=== PATIENT | female | born 1975 | race Caucasian/White ===

== ENCOUNTER 2019-01-11 09:54 | Day surgery (SDC) | payer OTHER, SELFPAY ==
[2019-01-11] VITALS (8 sets, daily range): BP systolic 77–116; BP diastolic 48–70; PULSE 70–98; RESP 10–16; TEMP 36.2–36.7; O2SAT 95–100; BMI 17.9
[2019-01-11] MEDS: SODIUM CHLORIDE 0.9% 1,000 ML 50 ML IV ×2 (10:22→12:19)
[2019-01-11] MEDS: ONDANSETRON 4 MG/2 ML INJ IV (11:18)
--- NOTE | 2019-01-11 11:21 | PM.HP.1 ---
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 Also history of abdominal pain need to check upper tract for evidence of precancerous lesions but also to rule out any findings contributing to her symptoms Patient History Medical History (Updated 01/11/19 @ 11:24 by Jourdan Rm MD) H/O: hysterectomy (Acute) Bellamy syndrome (Acute) Ovarian cancer (Acute) Pathologic fracture (Acute) Social History household members: spouse Family & Social History Social History: household members spouse Meds Home Medications Medication Instructions Recorded Confirmed Type No Known Home Medications 01/11/19 01/11/19 History Allergies Allergy/AdvReac Type Severity Reaction Status Date / Time No Known Drug Allergies Allergy Verified 01/11/19 10:39 Exam Vital Signs (past 8 hours): - 01/11/19 10:25 Temperature 98.0 F Pulse Rate 82 Respiratory Rate 12 Blood Pressure 113/70 Pulse Oximetry 100 Oxygen Delivery Method Room Air Narrative Exam Narrative: Oropharynx free of lesions Chest clear to auscultation percussion Cardiac exam reveals no S3 or murmur Assessment & Plan Assessment & Plan narrative: 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 Patient is also positive for Bellamy syndrome. Father is is well with bladder cancer and mother had gastric cancer last screening 2 years ago. Also some right upper quadrant discomfort Patient certainly needs colonoscopy and upper endoscopy. Risks, benefits, alternatives has been explained. Further recommendations will follow the results of those studies
--- NOTE | 2019-01-11 11:26 | P.HP_ITS ---
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 Also history of abdominal pain need to check upper tract for evidence of precancerous lesions but also to rule out any findings contributing to her symptoms Patient History Medical History (Updated 01/11/19 @ 11:24 by Jourdan Rm MD) H/O: hysterectomy (Acute) Bellamy syndrome (Acute) Ovarian cancer (Acute) Pathologic fracture (Acute) Social History household members: spouse Family & Social History Social History: household members spouse Meds Home Medications Medication Instructions Recorded Confirmed Type No Known Home Medications 01/11/19 01/11/19 History Allergies Allergy/AdvReac Type Severity Reaction Status Date / Time No Known Drug Allergies Allergy Verified 01/11/19 10:39 Exam Vital Signs (past 8 hours): - 01/11/19 10:25 Temperature 98.0 F Pulse Rate 82 Respiratory Rate 12 Blood Pressure 113/70 Pulse Oximetry 100 Oxygen Delivery Method Room Air Narrative Exam Narrative: Oropharynx free of lesions Chest clear to auscultation percussion Cardiac exam reveals no S3 or murmur Assessment & Plan Assessment & Plan narrative: 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 Patient is also positive for Bellamy syndrome. Father is is well with bladder cancer and mother had gastric cancer last screening 2 years ago. Also some right upper quadrant discomfort Patient certainly needs colonoscopy and upper endoscopy. Risks, benefits, alternatives has been explained. Further recommendations will follow the results of those studies
--- NOTE | 2019-01-11 11:26 | PM.OP.ENDO ---
Operative Date/Time/Diagnoses Date of procedure: 01/11/19 Time of procedure: 11:26 Pre-op diagnosis: See indication and findings Procedure & Clinicians Study performed: EGD and colonoscopy Same procedure as scheduled: Yes Indications: Bellamy syndrome positive and history of right upper quadrant discomfort Procedure Notes Procedure in detail: After informed consent was obtained the patient was placed in left lateral decubitus position. The video upper scope was placed into the oropharynx with the patient's health swallowed into the esophagus. The esophagus, stomach, duodenum were all examined. On withdrawal retroflexed view the GE junction was performed. The scope was removed. The patient tolerated procedure well though was difficult to sedate. The patient was then turned and the colonoscope was substituted. This was introduced the rectum slowly advanced to the cecum. Preparation was good. On slow withdrawal mucosa was carefully examined. The scope was removed. The patient tolerated the procedure well though the procedure was converted to a general in the midst of colonoscopy because of inability to sedate the patient Blood loss none Complications none Sedation Total sedation time 26 minutes for sedation alone prior to anesthesia being called Versed 14 mg fentanyl 150 micro g plus whatever anesthesia gave subsequently Findings EGD 1. Normal esophagus 2. Normal stomach 3. Normal duodenal bulb and sweep including papilla Colonoscopy 1. Inability to sedate patient and therefore transitioned to general with LMA 2. Otherwise negative colonoscopy to cecum. Very tortuous colon Patient will need follow-up EGD colonoscopy in 2 years. This always should be scheduled from here on out with anesthesia/mac
[2019-01-11] MEDS: MIDAZOLAM 5 MG/5 ML VIAL IV (11:59)
--- NOTE | 2019-01-11 12:17 | SUR.OPER ---
CONVERTED TO GENERAL ANESTHESIA AT 1200
[2019-01-11] MEDS: fentaNYL 250 MCG/5 ML INJ IV (12:19)
--- NOTE | 2019-01-11 12:49 | SUR.PHASEI ---
Bp low on admiot, dr jacobo aware, iv fluids wide open and hob lowered. bp rising report to jose alejandro baig.
--- NOTE | 2019-01-11 12:50 | SUR.PHASEI ---
dr linares to bedside and spoke to pt.
--- NOTE | 2019-01-11 13:26 | SUR.PHASEII ---
Pt. in Phase II with at bedside. Pt. enjoying having a beverage, swallowing without problem(s). Instructed spouse to initially start dietary intake with softer type foods, may progress as day goes on. VSS, IV fluids continuing while recuperating.
== END 2019-01-11 13:41 | disposition home or self-care (01) ==
PROVIDERS: Visit Provider Internal Medicine Gastroenterology
PROC: 0DJ08ZZ Inspection of Upper Intestinal Tract, Via Natural or Artificial Opening Endoscopic (ICD-10-PCS; CPT 43235; principal; 2019-01-11 11:00)
PROC: 0DJD8ZZ Inspection of Lower Intestinal Tract, Via Natural or Artificial Opening Endoscopic (ICD-10-PCS; CPT 45378; 2019-01-11 11:00)
DX: R10.11 Right upper quadrant pain (principal); Z15.09 Genetic susceptibility to other malignant neoplasm
CPT/HCPCS: 43235; 45378; J2250; J2405; J3010

== ENCOUNTER → 2019-12-13 10:27 | Outpatient (CLI) | payer OTHER, SELFPAY ==
--- NOTE | 2019-12-13 | DI.NM.S_ITS ---
PROCEDURE: [place] BONE SCAN WHOLE BODY RADIOPHARMACEUTICAL: 19.6 mCi Tc-99m MDP IV. 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 Anterior and posterior views were acquired from vertex to feet. Additional left and right oblique views of the pelvis were obtained. COMPARISON: [facility], CT, CT ANKLE LEFT WITHOUT CONTRAST, 09/03/2016, 10:51. [facility], CT, CT ANKLE LEFT WITHOUT CONTRAST, 09/03/2016, 10:51. [facility], CT, CT ANKLE LEFT WITHOUT CONTRAST, 04/22/2016, 12:57. [facility], CT, CT ANKLE LEFT WITHOUT CONTRAST, 04/22/2016, 12:57. [facility], CR, XR ANKLE 3+ VIEWS LEFT, 03/24/2016, 14:42. [facility], MR, MR ANKLE LT WO/W CON, 12/13/2019, 11:44. [facility] [place], CR, XR FEMUR 2+ VIEWS LEFT, 12/01/2019, 9:37. FINDINGS: There is no abnormal uptake in the distal left tibia. No lesions are identified in skull, sternum, clavicles, scapulae, ribs, bony pelvis, and visualized shafts of the long bones. There is low level increased uptake in cervical, thoracic and lumbar spine with distribution indistinguishable from degenerative disc and facet disease; early metastasis to spine could be obscured by degenerative changes. There are foci of increased periarticular activity involving shoulders, elbows, wrists, hands, hips, and knees, compatible with degenerative/arthritic changes. IMPRESSION: 1. No findings to suggest recurrent disease or metastatic disease. Dictated by: Clement Wylie M.D. on 12/13/2019 at 15:14 Approved by: Clement Wylie M.D. on 12/13/2019 at 18:15
--- NOTE | 2019-12-13 | DI.MRI.S_ITS ---
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 Post-contrast axial, coronal, and sagittal T1 spin echo with fat saturation through the ankle/hindfoot. COMPARISON: [facility], CR, XR ANKLE 3+ VIEWS LEFT, 04/24/2016, 12:50. [facility], CT, CT ANKLE LEFT WITHOUT CONTRAST, 04/22/2016, 12:57. [facility], CR, XR ANKLE 3+ VIEWS LEFT, 04/10/2016, 12:28. [facility], CR, XR ANKLE 3+ VIEWS LEFT, 06/30/2016, 11:07. [facility], CR, XR ANKLE 3+ VIEWS LEFT, 02/26/2017, 9:31. [facility] [place], CR, XR ANKLE 3 VIEWS WEIGHT BEARING LEFT, 12/01/2019, 9:01. FINDINGS: Image quality: Excellent. Bones and joints: Postsurgical changes related to resection and curettage of the medial malleolus, with grossly unchanged appearance. There is no adjacent marrow edema or abnormal enhancement. Intrinsic T1 hyperintensity is noted, without definite enhancement internally. No bone marrow contusions or fractures. No hindfoot coalitions. No osteochondral injuries of the talar dome. No pathologic joint effusions. Mild nonspecific subcutaneous edema overlying the medial malleolus. Medial structures: Posterior tibialis intact. Flexor digitorum longus intact. Flexor hallucis longus tendon intact. The posterior tibial neurovascular bundle appears normal within the tarsal tunnel, without extrinsic mass effect. Deltoid ligament complex appears intact. The spring ligament appears intact. Lateral structures: Anterior talofibular ligament intact. Calcaneofibular ligament intact. Posterior talofibular ligament intact. Anterior and posterior tibiofibular ligaments appear intact, as is the intermalleolar ligament. Tibiofibular syndesmosis is normal in width at 2 mm or less. Peroneus longus and brevis tendons are intact. There is trace peroneal tenosynovitis Bony peroneal tubercle and retrotrochlear prominence are normal in size. Sinus tarsi demonstrates normal fatty signal, without edema, fibrosis, or cyst formation. Anterior structures: Tibialis anterior intact. Extensor hallucis longus intact. Extensor digitorum longus tendon intact. Dorsal talonavicular ligament appears intact. Posterior and plantar structures: Achilles tendon is intact. Medial and lateral bands of the plantar fascia intact. No abductor digiti quinti muscle atrophy to suggest Wells neuropathy. IMPRESSION: Postsurgical changes with no specific evidence of active recurrent or residual tumor. Dictated by: Rodney Motley M.D. on 12/13/2019 at 12:51 Approved by: Rodney Motley M.D. on 12/13/2019 at 13:03
== END ==
PROVIDERS: Referring Provider Orthopaedic Surgery Foot and Ankle Surgery; Visit Provider Orthopaedic Surgery Foot and Ankle Surgery
DX: C40.22 Malignant neoplasm of long bones of left lower limb (principal)
CPT/HCPCS: 73723; 78306; A9503

== ENCOUNTER → 2023-09-06 09:56 | Outpatient (CLI) | payer OTHER, SELFPAY ==
--- NOTE | 2023-09-06 09:58 | DI.NM.S_ITS ---
PROCEDURE: [place] BONE SCAN WHOLE BODY RADIOPHARMACEUTICAL: 21.8 mCi Tc-99m MDP IV. INDICATIONS: SEBACEOUS CARCINOMA TECHNIQUE: Delayed whole-body scintigrams were obtained approximately 3-4 hours after intravenous injection of radiotracer. Anterior and posterior views were acquired from vertex to feet. COMPARISON: [place], [place], [place] BONE SCAN WHOLE BODY, 12/13/2019, 14:06. FINDINGS: No lesions are identified in skull, sternum, clavicles, scapulae, ribs, bony pelvis, and visualized shafts of the long bones. There are foci of increased uptake in cervical, thoracic and lumbar spine most likely secondary to degenerative disc and facet disease; early metastasis to spine could be obscured by degenerative changes. There are foci of increased periarticular activity most pronounced shoulders and hips, compatible with degenerative/arthritic changes. IMPRESSION: No scintigraphic findings to suggest osseous metastasis. Dictated by: Clement Wylie M.D. on 09/06/2023 at 15:46 Approved by: Clement Wylie M.D. on 09/06/2023 at 15:49
== END ==
PROVIDERS: PCP Internal Medicine; Referring Provider Surgery; Visit Provider Surgery
DX: C44.99 Other specified malignant neoplasm of skin, unspecified (principal)
CPT/HCPCS: 78306; A9503

== ENCOUNTER → 2024-05-05 10:35 | Outpatient (CLI) | payer OTHER, SELFPAY ==
--- NOTE | 2024-05-05 | DI.MRI.S_ITS ---
PROCEDURE: MR WRIST RT WO CON INDICATIONS: right wrist tendinitis TECHNIQUE: Noncontrast coronal proton density fast spin echo and T2 fast spin echo with fat saturation; coronal 3-D gradient echo, axial T1 spin echo and T2 fast spin echo with fat saturation, sagittal T1 spin echo through the wrist. COMPARISON: [facility] [place], CR, XR WRIST 3+ VIEWS RIGHT, 04/19/2024, 8:45. FINDINGS: Image quality: Excellent. Bones and cartilage: Mild ulnar negative variance. Multifocal punctate T2 hyperintensity within the carpal bones, nonspecific. No significant degenerative changes. No acute fracture. No marrow contusion. Carpal ligaments: Partial thickness tear of the scapholunate ligament. The lunotriquetral ligament is intact. Triangular fibrocartilage complex: Partial-thickness tear of the central disc (series 6, image 34). The fovea, and the ulnar attachments are remarkable. Tendons and soft tissues: Edema of the median nerve within the carpal tunnel, raising concern for carpal tunnel syndrome. The flexor tendons are unremarkable. Mild tenosynovitis of the extensor carpi ulnaris, about the level of the ulnar groove. There is low-grade interstitial tear of the extensor carpi ulnaris at the level of the ulnar groove. No ganglion cyst. IMPRESSION: 1. Partial-thickness tear of the central disc of the triangular fibrocartilage complex. 2. Partial-thickness tear of the scapholunate ligament. 3. Ulnar negative variance. 4. Finding suggestive of carpal tunnel syndrome. 5. Mild tenosynovitis with low-grade interstitial tear of the extensor carpi ulnaris at the level of the ulnar groove. Dictated by: Alice Thakkar M.D. on 05/05/2024 at 14:26 Approved by: Alice Thakkar M.D. on 05/05/2024 at 14:34
== END ==
PROVIDERS: Referring Provider Orthopaedic Surgery; Visit Provider Orthopaedic Surgery
DX: S63.591A Other specified sprain of right wrist, initial encounter (principal); M77.8 Other enthesopathies, not elsewhere classified; M65.931 Unspecified synovitis and tenosynovitis, right forearm
CPT/HCPCS: 73221